=== PATIENT | male | born 1970 | race Caucasian/White ===

== ENCOUNTER 2021-05-03 12:51 | Outpatient (REF) | payer OTHER, SELFPAY ==
[2021-05-03 13:24] LABS: COVID-19 Test Negative (Negative)
== END 2021-05-03 12:52 | disposition home or self-care (01) ==
LOC: HO.LDS 12:51
PROVIDERS: Visit Provider Internal Medicine
DX: Z20.822 Contact with and (suspected) exposure to COVID-19 (principal)
CPT/HCPCS: 36415; 87635